=== PATIENT | male | born 2005 | race Caucasian/White ===

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

== ENCOUNTER 2025-04-30 11:24 | Emergency (ER) | payer OTHER, BC | END 2025-04-30 14:52 | disposition home or self-care (01) | LOC: MW.ED 11:24 | DX: S61.211A Laceration without foreign body of left index finger without damage to nail, initial encounter (principal); W23.0XXA Caught, crushed, jammed, or pinched between moving objects, initial encounter | CPT/HCPCS: 12001; 73140; 99283; J2003 ==